=== PATIENT | female | born 1945 | race Caucasian/White ===

== ENCOUNTER 2017-03-28 07:46 | Day surgery (SDC) | payer MEDICARE, OTHER ==
[2017-03-28] MEDS ORDERED: Propofol 10 mg/ml Inj (20 ML) ONE (11:50)
[2017-03-28] MEDS ORDERED: Lactated Ringer's 500 ML IV ONE (11:55)
--- NOTE | 2017-03-28 11:56 | CP.SDSHP ---
Same Day Surgery H & P - History Proposed Procedure: Colonoscopy Pre-Op Diagnosis: High risk screening colonoscopy - Previous Medical/Surgical History Cardiac: Hypertension Endocrine/Metabolic: Diabetes, Other (Hyperlipidemia) Misc: Other (Colon Diverticulosis) Previous Surgical History: MY - Allergies Allergies: Allergies No Known Allergies Allergy (Unverified 03/28/17 08:20) - Current Medications Current Medications: reviewed, per reconciliation - Physical Exam General Appearance: wdwn nad Vital Signs: Vital Signs 03/28/17 08:25 Temperature 97.7 F Pulse Rate 80 Respiratory 20 Rate Blood Pressure 122/63 O2 Sat by Pulse 98 Oximetry Mental Status: Alert & Oriented x3 Heart: WNL Lungs: WNL GI: WNL - {Optional Preform as Required} Abdomen: WNL - Impression Impression: Screening Colonoscopy Pt. Evaluated Today:Candidate for Anesthesia & Procedure: Yes - Date & Time Date: 03/28/17 Time: 11:56 Short Stay Discharge - Short Stay Discharge Admitting Diagnosis/Reason for Visit: SCREENING Disposition: HOME/ ROUTINE
[2017-03-28 13:14] VITALS: O2SAT 100
[2017-03-28 13:41] VITALS: BP 121/61; PULSE 81; RESP 20; TEMP 97.3
== END 2017-03-28 13:40 | disposition home or self-care (01) ==
LOC: C.ENDO 07:46
PROVIDERS: ATTEND Internal Medicine Gastroenterology
DX: Z12.11 Encounter for screening for malignant neoplasm of colon (principal); K63.5 Polyp of colon; K64.0 First degree hemorrhoids; K57.30 Diverticulosis of large intestine without perforation or abscess without bleeding; Z80.0 Family history of malignant neoplasm of digestive organs; E11.9 Type 2 diabetes mellitus without complications; E78.5 Hyperlipidemia, unspecified
CPT/HCPCS: 45385; 82948; 88305; J2704; J7120

== ENCOUNTER 2018-08-23 12:21 | Outpatient (CLI) | payer OTHER | END 2018-08-23 12:22 | disposition home or self-care (01) | LOC: C.MAMMO 12:21 | DX: Z12.31 Encounter for screening mammogram for malignant neoplasm of breast (principal) ==

== ENCOUNTER 2018-10-30 10:45 | Outpatient (CLI) | payer OTHER | END 2018-10-30 10:46 | disposition home or self-care (01) | LOC: C.DEXAIC 10:46 ==